=== PATIENT | female | born 1950 | race Hispanic/Latino ===

== ENCOUNTER 2022-08-23 08:59 | Observation (INO) | payer MEDICARE ==
[2022-08-23 09:54] LABS: #Eosinphils 0.1 thou/uL (0.0-0.7); #Lymphocytes 1.4 thou/uL (1.20-3.40); #Monocytes 0.5 thou/uL (0.11-0.59); #Neutrophils 4.8 thou/uL (1.40-6.50); %Basophils 0.1 % (0.0-1.0); %Eosinophils 0.8 % (0.0-10.0); %Lymphocytes 20.4 % (21.0-51.0); %Monocytes 6.9 % (0.0-10.0); %Neutrophils 71.8 % (42.0-75.0); Hemoglobin 11.2 g/dL (12.0-16.0); Mean Corpuscular HGB CONC 33.2 g/dL (32.0-36.0); Mean Corpuscular Hemoglobin 28.2 pg (27.0-31.0); Mean Corpuscular Volume 85.1 fL (78.0-98.0); Mean Platelet Volume 7.5 fL (7.4-10.4); Platelet Count 161 thou/uL (130-400); RBC Distribution Width 12.5 % (11.5-14.5); Red Blood Cell (RBC) Count 3.95 mill/uL (4.20-5.40); White Blood Cell (WBC) Count 6.7 thou/uL (4.8-10.8)
[2022-08-23 10:18] LABS: Bacteria/HPF 4+ HPF (None Seen); Bilirubin Negative (Negative); Blood, Urine Negative (Negative); Clarity Clear (Clear); Glucose, Urine (Dipstick) Normal (Negative); Ketone, Urine Negative (Negative); Leukocyte Negative Leu/uL (Negative); Mucous/LPF Rare LPF (<2+); Nitrite Negative (Negative); Protein, Urine (Dipstick) 30 mg/dL (Neg-Trace); Specific Gravity, Urine 1.019 (1.002-1.036); Squamous Epithelial 0-3 HPF (0-3); Urobilinogen Normal mg/dL (Less than 2); pH, Urine 5.5 (5.0-9.0)
[2022-08-23 10:19] LABS: ALT (SGPT) 9 U/L (8-55); AST (SGOT) 20 U/L (5-34); Albumin 3.9 g/dL (3.4-4.8); Alkaline Phosphatase 49 U/L (40-110); Anion Gap 13 mmol/L (10-20); BUN (Urea Nitrogen) 15 mg/dL (9.8-20.1); Bilirubin, Total 0.6 mg/dL (0.2-1.2); Calc. Creatinine Clearance 0 mL/min (70-130); Calcium 9.6 mg/dL (7.8-10.44); Carbon Dioxide 24 mmol/L (23-31); Chloride 106 mmol/L (98-107); Estimated GFR 69; Potassium 3.9 mmol/L (3.5-5.1); Protein, Total 6.9 g/dL (5.8-8.1); Sodium 139 mmol/L (136-145)
[2022-08-23 10:23] LABS: Glucose 154 mg/dL (83-110)
[2022-08-23] MEDS ORDERED: Dextrose 50% Abboject 50 ML SYRINGE SLOW IVP PRN (12:49)
[2022-08-23] MEDS ORDERED: HumaLOG 300 UNITS/3 ML VIAL SC PRN ×2 (12:49)
[2022-08-23] MEDS ORDERED: Dextrose 5% in Water 1,000 ML IV PRN (12:49)
[2022-08-23] MEDS ORDERED: Ondansetron ODT 4 MG TAB PO PRN (13:01)
[2022-08-23] MEDS ORDERED: hydrALAZINE 20 MG/ML VIAL SLOW IVP PRN (13:04)
[2022-08-23 13:34] LABS: Troponin I Less than 0.010 ng/mL (< 0.028)
[2022-08-23] MEDS: Acetaminophen 325 MG TAB PO PRN ×2 (13:59→22:02)
[2022-08-23 14:25] VITALS: BMI 23.8
[2022-08-23 16:24] LABS: Troponin I 0.011 ng/mL (< 0.028)
[2022-08-23] MEDS: metFORMIN 500 MG TAB PO SCH (17:27)
[2022-08-24 05:02] LABS: #Eosinphils 0.1 thou/uL (0.0-0.7); #Lymphocytes 1.6 thou/uL (1.20-3.40); #Monocytes 0.5 thou/uL (0.11-0.59); #Neutrophils 2.7 thou/uL (1.40-6.50); %Basophils 0.3 % (0.0-1.0); %Eosinophils 1.5 % (0.0-10.0); %Monocytes 9.9 % (0.0-10.0); %Neutrophils 55.3 % (42.0-75.0); Hemoglobin 9.9 g/dL (12.0-16.0); Mean Corpuscular HGB CONC 32.1 g/dL (32.0-36.0); Mean Corpuscular Hemoglobin 27.6 pg (27.0-31.0); Mean Platelet Volume 7.6 fL (7.4-10.4); Platelet Count 162 thou/uL (130-400); RBC Distribution Width 12.5 % (11.5-14.5); Red Blood Cell (RBC) Count 3.57 mill/uL (4.20-5.40); White Blood Cell (WBC) Count 4.9 thou/uL (4.8-10.8)
[2022-08-24 05:06] LABS: Phosphorus 4.8 mg/dL (2.3-4.7)
[2022-08-24 05:07] LABS: Anion Gap 11 mmol/L (10-20); BUN (Urea Nitrogen) 18 mg/dL (9.8-20.1); Calc. Creatinine Clearance 54 mL/min (70-130); Calcium 8.8 mg/dL (7.8-10.44); Carbon Dioxide 25 mmol/L (23-31); Cardiac Risk 3.9 (Less than 4.5); Chloride 105 mmol/L (98-107); Cholesterol 129 mg/dl (< 200 Desired); Estimated GFR 71; Glucose 122 mg/dL (83-110); HDL Cholesterol 33 mg/dL (>60 Neg Risk); LDL Cholesterol, Calculated 84 mg/dL; Magnesium 1.7 mg/dL (1.6-2.6); Potassium 3.6 mmol/L (3.5-5.1); Sodium 137 mmol/L (136-145); Triglycerides 61 mg/dL (Less than 150)
[2022-08-24] MEDS ORDERED: Magnesium 2 GM/50 ML(in water) 2 GM in Premix Bag 1 BAG IVPB SCH (05:15)
[2022-08-24] MEDS: Levothyroxine Sodium 50 MCG TAB PO SCH (05:44)
[2022-08-24] MEDS: metFORMIN 500 MG TAB PO SCH ×2 (08:52→17:13)
[2022-08-24] MEDS: Cholecalciferol 1,000 UNITS (25 MCG) TAB PO SCH (08:52)
[2022-08-24] MEDS: Aspirin 81 mg Enteric Coated Tablet PO SCH (08:52)
[2022-08-24] MEDS: Ezetimibe 10 MG TAB PO SCH (08:52)
[2022-08-24] MEDS: Losartan 25 MG TAB PO SCH (08:53)
[2022-08-24] MEDS: Acetaminophen 325 MG TAB PO PRN (08:53)
[2022-08-24] MEDS: Spironolactone 25 MG TAB PO SCH (08:53)
[2022-08-24] MEDS: Rosuvastatin 20 MG TAB PO SCH (08:53)
[2022-08-25] MEDS: Acetaminophen 325 MG TAB PO PRN (01:51)
[2022-08-25 05:04] LABS: #Eosinphils 0.1 thou/uL (0.0-0.7); #Lymphocytes 1.7 thou/uL (1.20-3.40); #Monocytes 0.6 thou/uL (0.11-0.59); #Neutrophils 3.4 thou/uL (1.40-6.50); %Basophils 0.2 % (0.0-1.0); %Eosinophils 1.2 % (0.0-10.0); %Lymphocytes 29.7 % (21.0-51.0); %Monocytes 10.2 % (0.0-10.0); %Neutrophils 58.8 % (42.0-75.0); Hemoglobin 9.7 g/dL (12.0-16.0); Mean Corpuscular HGB CONC 32.9 g/dL (32.0-36.0); Mean Corpuscular Hemoglobin 28.4 pg (27.0-31.0); Mean Corpuscular Volume 86.5 fL (78.0-98.0); Mean Platelet Volume 7.8 fL (7.4-10.4); Platelet Count 154 thou/uL (130-400); RBC Distribution Width 12.5 % (11.5-14.5); Red Blood Cell (RBC) Count 3.42 mill/uL (4.20-5.40); White Blood Cell (WBC) Count 5.8 thou/uL (4.8-10.8)
[2022-08-25 05:26] LABS: Anion Gap 12 mmol/L (10-20); BUN (Urea Nitrogen) 13 mg/dL (9.8-20.1); Calc. Creatinine Clearance 55 mL/min (70-130); Calcium 8.7 mg/dL (7.8-10.44); Carbon Dioxide 23 mmol/L (23-31); Chloride 106 mmol/L (98-107); Estimated GFR 73; Glucose 114 mg/dL (83-110); Magnesium 1.9 mg/dL (1.6-2.6); Sodium 137 mmol/L (136-145)
[2022-08-25] MEDS ORDERED: Magnesium 2 GM/50 ML(in water) 2 GM in Premix Bag 1 BAG IVPB SCH (06:00)
[2022-08-25] MEDS: Levothyroxine Sodium 50 MCG TAB PO SCH (06:09)
[2022-08-25] MEDS: Cholecalciferol 1,000 UNITS (25 MCG) TAB PO SCH (08:27)
[2022-08-25] MEDS: metFORMIN 500 MG TAB PO SCH (08:27)
[2022-08-25] MEDS: Ezetimibe 10 MG TAB PO SCH (08:27)
[2022-08-25] MEDS: Aspirin 81 mg Enteric Coated Tablet PO SCH (08:27)
[2022-08-25] MEDS: Rosuvastatin 20 MG TAB PO SCH (08:28)
[2022-08-25] MEDS: Spironolactone 25 MG TAB PO SCH (08:28)
[2022-08-25] MEDS: Losartan 25 MG TAB PO SCH (08:28)
[2022-08-25 11:55] VITALS: TEMP 98
[2022-08-25 12:23] VITALS: BP 140/65
== END 2022-08-25 16:21 | disposition home or self-care (01) ==
LOC: ERS 08:59 → 2SW 11:44
PROVIDERS: ADMIT Hospitalist; ATTEND Hospitalist
DX: R55 Syncope and collapse (principal); I10 Essential (primary) hypertension; E78.5 Hyperlipidemia, unspecified; E11.9 Type 2 diabetes mellitus without complications; M81.0 Age-related osteoporosis without current pathological fracture; N39.0 Urinary tract infection, site not specified; E03.9 Hypothyroidism, unspecified; S00.03XA Contusion of scalp, initial encounter; I08.1 Rheumatic disorders of both mitral and tricuspid valves; D64.9 Anemia, unspecified; Z79.82 Long term (current) use of aspirin; Z79.83 Long term (current) use of bisphosphonates; Z79.84 Long term (current) use of oral hypoglycemic drugs; Z79.890 Hormone replacement therapy; Z79.899 Other long term (current) drug therapy; Z88.0 Allergy status to penicillin; Z20.822 Contact with and (suspected) exposure to COVID-19; W19.XXXA Unspecified fall, initial encounter; Y93.01 Activity, walking, marching and hiking
CPT/HCPCS: 70450; 71045; 72125; 80048 ×2; 80053; 80061; 82962 ×3; 83735 ×2; 84100; 84443; 84484 ×2; 85025 ×3; 87086; 93005; 93306; 96365; 96366; 96367; 96376; 99285; G0378 ×4; U0003; U0005; 36415; 36416; 81003; 81015; J0744; J3475